=== PATIENT | male | born 1985 | race Caucasian/White ===

== ENCOUNTER 2017-07-28 13:22 | Emergency (ER) | payer SELFPAY ==
[~2017-07-28] VITALS: Ht 177.8 cm; Wt 102.0 kg
[2017-07-28 13:27] VITALS: Ht 177.8 cm; Wt 102.0 kg
[2017-07-28 14:26] LABS: BASOPHIL % 0.4 % (0-2); PLATELET COUNT 223 x10^3mcL (130-400); RED CELL DISTRIBUTION WIDTH 12.4 % (11.5-14.5)
[2017-07-28 14:37] LABS: ALKALINE PHOSPHATASE 102 U/L (46-116); ALT/SGPT 64 U/L (16-63); AST/SGOT 20 U/L (15-37); BILIRUBIN TOTAL 0.7 mg/dL (0.20-1.00); CALCIUM 8.9 mg/dL (8.5-10.1); CARBON DIOXIDE 24.2 mmol/L (21-32); CHLORIDE SERUM 98 mmol/L (98-107); CREATININE SERUM 0.8 mg/dL (0.7-1.3); GFR1 > 60 mL/min; POTASSIUM SERUM 4.1 mmol/L (3.5-5.1); SODIUM SERUM 130 mmol/L (136-145); TOTAL PROTEIN, SERUM 7.3 g/dL (6.4-8.2)
[2017-07-28 14:40] LABS: GLUCOSE SERUM 475 mg/dL (74-106)
[2017-07-28 17:01] VITALS: BP 122/83
== END 2017-07-28 17:20 | disposition home or self-care (01) ==
LOC: ED 13:22
PROVIDERS: Emergency Medicine
DX: R07.89 Other chest pain (principal); E11.9 Type 2 diabetes mellitus without complications
CPT/HCPCS: J1815; J7030